=== PATIENT | female | born 1985 | race Caucasian/White ===

== ENCOUNTER 2021-11-27 09:48 | Emergency (ER) | payer SELFPAY ==
[2021-11-27] MEDS ORDERED: Codeine/guaiFENesin 10-100 MG/5 ML Syrup 5 ML Cup PO ONE (10:25)
== END 2021-11-27 11:30 | disposition home or self-care (01) ==
LOC: FB.ED 09:48
DX: U07.1 COVID-19 (principal); Z91.040 Latex allergy status; Z79.899 Other long term (current) drug therapy
CPT/HCPCS: 36415; 85027; 87635; 99283; A9270; U0002